=== PATIENT | male | born 1945 | race Caucasian/White ===

== ENCOUNTER → 2017-03-04 | Outpatient (CLI) | payer MEDICARE ==
--- NOTE | 2017-03-04 14:02 | XR ---
EXAMINATION TYPE: XR shoulder complete LT DATE OF EXAM: 03/04/2017 COMPARISON: NONE HISTORY: Pain TECHNIQUE: Three views are submitted. FINDINGS: The osseous structures are intact. There is no acute fracture or dislocation. Arthropathy of the AC joint noted. IMPRESSION: 1. No acute process.
== END | disposition home or self-care (01) ==
LOC: RADXRYALE 13:27
PROVIDERS: ATTEND Internal Medicine
DX: M25.512 Pain in left shoulder (principal)